=== PATIENT | female | born 1975 | race Two or more races ===

== ENCOUNTER 2018-01-05 10:06 | Outpatient (CLI) | payer OTHER ==
[~2018-01-05 10:06] MED LIST: LEXAPRO20 MG; NORFLEX100 MG; PROVENTIL0.5 ML/2.5
== END 2018-01-05 10:14 | disposition home or self-care (01) ==
LOC: MAMO-SONO 10:06
DX: Z12.31 Encounter for screening mammogram for malignant neoplasm of breast (principal)